=== PATIENT | male | born 1940 | race Caucasian/White ===

== ENCOUNTER 2017-02-07 18:32 | Emergency (ER) | payer OTHER, MEDICARE ==
[~2017-02-07] VITALS: Ht 172.7 cm; Wt 95.3 kg
[~2017-02-07 18:32] MED LIST: ALLOPURINOL100 M1 PO; AMIODARONE HCL200 M1 PO; AMLODIPINE BES2.5 M1 PO; AMLODIPINE BES2.5 MG PO; AMLODIPINE BESY10 M1 PO; ASPIRIN81 M4 PO; ATORVASTATIN CA20 M1 PO; BISAC-EVAC10 M1 PR; BISACODYL10 M1 RC; CLARITIN10 M1 PO; DAILY VALUE1 EACH PO; DESITIN56 GM TOP; FLOMAX0.4 M1 PO; FLUTICASON0.05 MG/Ac NASB; FLUTICASONE PRO16 GM NAS; FUROSEMIDE20 M1 PO; GLYCERIN1 SUP PR; HYDROCHLOROTH12.5 M3 PO; HYDROCHLOROTHIA25 M1 PO; HYDRODIURIL 2525 MG PO; INVANZ1 G1 IV; K-DUR 20MEQ TA20 MEQ PO; KLOR-CON25 MEQ PO; LASIX40 M1 PO; LISINOPRIL20 M1 PO; LOSARTAN POTAS100 M1 PO; LOSARTAN POTAS100 MG PO; LUTEIN10 MG PO; LUTEIN6 M1 PO; MIRALAX17 G1 PO; MIRALAX17 GM PO; MULTI VITAMINS1 TAB PO; MULTI-DAY VITA1 EACH PO; NEPHRO-VITE TA0.8 MG PO; OMEPRAZOLE40 M1 PO; PERIDEX473 ML PO; POTASSIUM CHLO20 ME2 PO; SELENIUM200 MC4 PO; SENOKOT-S TABL1 EACH PO; SIMVASTATIN10 M1 PO; TAMSULOSIN HCL0.4 M1 PO; TAMSULOSIN HYD0.4 MG PO; TOPROL XL25 M1 PO; VITAMIN C500 M3 PO; VITAMIN C500 M8 PO; VITAMIN D31000 IU PO; VITAMIN D31000 UNI1 PO; ZOCOR 10MG TAB10 MG PO; ZOCOR20 M1 PO; [UNRECOGNIZED DRUG - OTHER] PO
--- NOTE | 2017-02-07 21:05 | ED MVC/FALL/TRAUMA COMPLAINT ---
History of Present Illness General Chief Complaint: General Adult Stated Complaint: FALL Source: patient, old records Exam Limitations: no limitations Vital Signs & Intake/Output Vital Signs & Intake/Output Vital Signs Date Time Temp Pulse Resp B/P B/P Pulse O2 O2 Flow FiO2 Mean Ox Delivery Rate 02/07 2220 97.7 62 150/82 02/07 1854 98.3 63 18 171/83 95 Room Air Allergies Coded Allergies: Penicillins (RASH 05/15/16) tetracycline (RASH 05/15/16) Reconcile Medications Allopurinol 100 MG TABLET 2 TAB PO DAILY KIDNEY HEALTH Amiodarone HCl 200 MG TABLET 1 TAB PO DAILY HEART HEALTH Ascorbic Acid (Vitamin C) 500 MG TABLET 1 TAB PO DAILY SUPPLEMENT (Reported) Aspirin (Aspirin*) 81 MG TAB.CHEW 1 TAB PO DAILY heart health Atorvastatin Calcium 20 MG TABLET 1 TAB PO 5PM HIGH CHOLESTROL Bisacodyl 10 MG SUPP.RECT 1 SUP RC Sunday PRN CONSTIPATION Chlorhexidine Gluconate (Peridex) (Unknown Strength) MOUTHWASH (Unknown Dose) PO BID GINGIVITIS (Reported) Cholecalciferol (Vitamin D3) (Vitamin D3) 1,000 UNIT CAPSULE 2 CAP PO QPM SUPPLEMENT (Reported) Fluticasone Propionate 16 GM SPRAY.SUSP 2 SPRAY KATHIE DAILY SINUS CONGESTION ( Reported) Furosemide (Lasix) 40 MG TABLET 1 TAB PO BID heart Lisinopril 20 MG TABLET 1 TAB PO DAILY heart health Loratadine (Claritin) 10 MG TABLET 1 TAB PO QPM ALLERGIES (Reported) Metoprolol Succ XL (Toprol XL) 25 MG TAB 1 TAB PO DAILY heart health Multivitamin (Multi-Day Vitamins) 1 EACH TABLET 1 TAB PO DAILY SUPPLEMENTS Omeprazole 40 MG CAPSULE.DR 1 CAP PO DAILY STOMACH HEALTH Polyethylene Glycol 3350 (Miralax) 17 GRAM POWD.PACK 1 PAC PO DAILY CONSTIPATION dissolve in water Sennosides/Docusate Sodium (Senokot-S Tablet) 8.6 MG-50 MG TABLET 1 TAB PO BID CONSTIPATION Tamsulosin HCl 0.4 MG CAP.ER.24H 0.4 MG PO BID PROSTATE (Reported) Zinc Oxide (Desitin) 13 % CREAM..G. 1 LUZMA TOP BID GROIN (Reported) Triage Note: PT TO TRIAGE WITH C/O DENTAL BLEEDING S/P TEETH EXTRUCTION AT 10AM TODAY. VSS. Triage Nurses Notes Reviewed? yes Onset: Abrupt Duration: hour(s): (few) Timing: multiple episodes today Severity: mild, moderate Injuries/Fall Location: gum surgery No Modifying Factors: none HPI: This is a 76-year-old male with history of CLL who presents for chief complaint of gum bleeding status post tooth extractions done today. He states he had broken the Bridge and they did an extraction of his teeth. He states they got clearance from Dr. TAMAYO regarding his platelet count. (Drs. afternoon he started having significant bleeding but appears to have tapered off. He doesn't feel lightheaded or dizzy. Denies any chest pain or shortness of breath. Denies any dizziness. Upon coming to the hospital he tripped over the curb and landed on his left thigh but states that NOTHING hurts and didn't hit his head. is very concerned that he is having bleeding and wants to know what his platelet count is. I'm sure with last platelet count was that is usually done and sent to [place]. His last blood transfusion was one month ago. According to the he is doing very well on his new chemotherapeutic drug for CLL. Past History Travel History Traveled to [place] past 21 day No Medical History Any Pertinent Medical History? 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 Musculoskeletal: NONE Psychiatric: NONE Endocrine: NONE Blood Disorders: anemia, PE (remote history), CLL with anemia, leukocytosis & thrombocytopenia Cancer(s): CLL History of MRSA: No History of VRE: No History of CDIFF: No Pneumonia Vaccine: 09/10/16 Influenza Vaccine: 08/09/16 Surgical History Surgical History: appendectomy, cholecystectomy, cataract removal, nasal polyps removed Psychosocial History Who do you live with Spouse Services at Home None What is your primary language Yoruba Tobacco Use: Quit >30 days ago Family History Family History, If Any: FATHER (PNA). , Age 70; Cause: Pancreatic cancer. MOTHER, , Age 98; Cause: CHF (congestive heart failure). BROTHER, , Age 70; Cause: Brain tumor. Hx Contributory? No Review of Systems Review of Systems Constitutional: Denies: chills, fever. Eyes: Denies: blindness, blurred vision. Ears, Nose, Throat, Mouth: Reports: no symptoms. Respiratory: Denies: cough, short of breath, sputum production. Cardiovascular: Denies: chest pain, palpitations. Gastrointestinal/Abdominal: Denies: abdominal pain. Genitourinary: Reports: no symptoms. Musculoskeletal: Reports: no symptoms. Skin: Denies: see HPI. Neurological/Psychological: Denies: anxiety. All Other Systems: Reviewed and Negative Physical Exam Physical Exam General Appearance: well developed/nourished, alert, awake Head: atraumatic, normal appearance Eyes: Bilateral: normal appearance, PERRL, EOMI. Ears, Nose, Throat, Mouth: hearing grossly normal, moist mucous membrane, minimal oozing from upper gum PATIENT BITING DOWN ON GAUZE Neck: normal inspection, supple, full range of motion Respiratory: normal breath sounds, chest non-tender, no respiratory distress Cardiovascular: regular rate/rhythm Peripheral Pulses: 2+ radial (R), 2+ radial (L) Extremities: normal range of motion Neurologic/Psych: no motor/sensory deficits, awake, alert, oriented x 3 Skin: intact, normal color, warm/dry Core Measures ACS in differential dx? No Severe Sepsis Present: No Septic Shock Present: No Progress Differential Diagnosis: POST OPERATIVE GINGIVAL BLEEDING Plan of Care: Orders Procedure Date/time Status COMPREHENSIVE METABOLIC PANEL 02/07 2114 Complete CBC WITHOUT DIFFERENTIAL 02/07 2114 Complete Laboratory Tests 02/07/172117: Anion Gap 10, Estimated GFR 59 L, BUN/Creatinine Ratio 16.7, Glucose 90, Calcium 9.3, Total Bilirubin 1.1, AST 24, ALT 37, Alkaline Phosphatase 110, Total Protein 6.0 L, Albumin 4.0, Globulin 2.0, Albumin/Globulin Ratio 2.0, CBC w Diff NO MAN DIFF REQ, RBC 4.72, MCV 79.6 L, MCH 25.8 L, RDW 15.7 H, MPV 7.9 , Gran % 40.6 L, Lymphocytes % 56.0 H, Monocytes % 2.9, Eosinophils % 0.3, Basophils % 0.2, Absolute Granulocytes 2.9, Absolute Lymphocytes 4.0 H, Absolute Monocytes 0.2, Absolute Eosinophils 0, Absolute Basophils 0, PUBS MCHC 32.4 L PLATELET COUNT 93 MINIMAL OOZING FROM GUM D/W SECTION FOREST FIRE WARDEN FOR DR TAMAYO - WILL LET HIM KNOW PATIETN'S RESULTS IN AM (JOEY BETTS,JESSICA) Departure Departure Time of Disposition: 2224 Disposition: HOME OR SELF CARE Condition: Stable Clinical Impression Primary Impression: Gingival bleeding Referrals: CALIN BETTS,ANJANA Nash (PCP/Family) RONI BETTS,YAJAIRA Mauricio Additional Instructions: Follow-up with your oral surgeon and with your oncologist in the office. Return for any worsening bleeding. Departure Forms: Customer Survey General Discharge Information
[2017-02-07 21:26] LABS: ABSOLUTE BASOPHIL COUNT 0 /CUMM (0.0-0.2); ABSOLUTE EOSINOPHIL COUNT 0 /CUMM (0.0-0.7); ABSOLUTE GRANULOCYTE CT 2.9 /CUMM (1.4-6.5); ABSOLUTE MONOCYTE COUNT 0.2 /CUMM (0.10-0.60); BASOPHIL % 0.2 % (0.0-2.0); EOSINOPHIL % 0.3 % (0-5); HEMATOCRIT 37.5 % (42-52); MEAN CORPUSCULAR HGB 25.8 PG (27.0-31.0); MEAN CORPUSCULAR HGB CONC 32.4 G/DL (33.0-37.0); MEAN CORPUSCULAR VOLUME 79.6 FL (80.0-94.0); MEAN PLATELET VOLUME 7.9 FL (7.4-10.4); PLATELET COUNT 93 /CUMM (130-400); RBC DISTRIBUTION WIDTH 15.7 % (11.5-14.5); RED BLOOD CELL CT 4.72 /CUMM (4.70-6.10); WHITE BLOOD CELL COUNT 7.2 /CUMM (4.8-10.8)
[2017-02-07 21:28] LABS: GRANULOCYTE % 40.6 % (42.2-75.2)
[2017-02-07 22:20] VITALS: BP 150/82
== END 2017-02-07 22:30 ==
LOC: ERH 18:32
PROVIDERS: Emergency Medicine
DX: K06.8 Other specified disorders of gingiva and edentulous alveolar ridge (principal)

== ENCOUNTER 2018-01-19 08:25 | Emergency (ER) | payer OTHER, MEDICARE ==
[~2018-01-19] VITALS: Ht 172.7 cm; Wt 97.5 kg
--- NOTE | 2018-01-19 09:00 | ED GENERAL ADULT ---
History of Present Illness General Chief Complaint: General Adult Stated Complaint: PER PT FEVER LAST PM Source: patient, family, old records Exam Limitations: no limitations Allergies Coded Allergies: Penicillins (RASH 05/15/16) tetracycline (RASH 05/15/16) Reconcile Medications Allopurinol 100 MG TABLET 2 TAB PO DAILY KIDNEY HEALTH Amiodarone (Cordarone) 200 MG TABLET 1 TAB PO DAILY HEART HEALTH Ascorbic Acid (Vitamin C) 500 MG TABLET 1 TAB PO DAILY SUPPLEMENT (Reported) Aspirin (Aspirin*) 81 MG TAB.CHEW 1 TAB PO DAILY heart health Atorvastatin Calcium 20 MG TABLET 1 TAB PO 5PM HIGH CHOLESTROL Bisacodyl 10 MG SUPP.RECT 1 SUP RC Sunday PRN CONSTIPATION Chlorhexidine Gluconate (Peridex) (Unknown Strength) MOUTHWASH (Unknown Dose) PO BID GINGIVITIS (Reported) Cholecalciferol (Vitamin D3) (Vitamin D3) 1,000 UNIT CAPSULE 2 CAP PO QPM SUPPLEMENT (Reported) Fluticasone Propionate 16 GM SPRAY.SUSP 2 SPRAY KATHIE DAILY SINUS CONGESTION ( Reported) Furosemide (Lasix) 40 MG TABLET 1 TAB PO BID heart Lisinopril 20 MG TABLET 1 TAB PO DAILY heart health Loratadine (Claritin) 10 MG TABLET 1 TAB PO QPM ALLERGIES (Reported) Metoprolol Succ XL (Toprol XL) 25 MG TAB 1 TAB PO DAILY heart health Multivitamin (Multi-Day Vitamins) 1 EACH TABLET 1 TAB PO DAILY SUPPLEMENTS Omeprazole 40 MG CAPSULE.DR 1 CAP PO DAILY STOMACH HEALTH Polyethylene Glycol 3350 (Miralax) 17 GRAM POWD.PACK 1 PAC PO DAILY CONSTIPATION dissolve in water Sennosides/Docusate Sodium (Senokot-S Tablet) 8.6 MG-50 MG TABLET 1 TAB PO BID CONSTIPATION Tamsulosin HCl 0.4 MG CAP.ER.24H 0.4 MG PO BID PROSTATE (Reported) Zinc Oxide (Desitin) 13 % CREAM..G. 1 LUZMA TOP BID GROIN (Reported) Triage Note: PT PRESENTS TO THER ER C/O CHILLS AND FEVER, PT STATES THAT HE HAS A BAD SINUS INFECTION AND THAT IT IS GETTING WORSE.. PT STATES HE HAS CLL. Triage Nurses Notes Reviewed? yes HPI: Patient has CLL. Patient was on chemotherapy however his blood count decreased to thousand so the medication was held. Last night patient began to run a fever of 100.6. He spoke to his doctor this morning who told him to come to the emergency department for evaluation. Patient states that he has chronic sinusitis and has a pressure sensation in his right frontal sinus. He blows his nose often with a very thick yellowish discharge. He does have a productive cough but states that it he feels postnasal drip and then he coughs and then he brings up thick yellow sputum. Patient states that this is been an ongoing issue and he has no appointment to see an ear nose and throat doctor again next week. (Urban BETTS,Marty Vasquez) Vital Signs & Intake/Output Vital Signs & Intake/Output Vital Signs Date Time Temp Pulse Resp B/P B/P Pulse O2 O2 Flow FiO2 Mean Ox Delivery Rate 01/19 1013 99.0 74 18 119/64 92 Room Air 01/19 0923 97 Room Air Room Air 01/19 0832 99.2 83 18 138/75 92 Room Air (Fausto BETTS,Katy) Past History Travel History Traveled to [place] past 21 day No Medical History Any Pertinent Medical History? 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 Musculoskeletal: NONE Psychiatric: NONE Endocrine: NONE Blood Disorders: anemia, PE (remote history), CLL with anemia, leukocytosis & thrombocytopenia Cancer(s): CLL History of MRSA: No History of VRE: No History of CDIFF: No Surgical History Surgical History: appendectomy, cholecystectomy, cataract removal, nasal polyps removed Psychosocial History Who do you live with Spouse Services at Home None What is your primary language Micronesian Tobacco Use: Quit >30 days ago ETOH Use: denies use Illicit Drug Use: denies illicit drug use Family History Family History, If Any: FATHER (PNA). , Age 70; Cause: Pancreatic cancer. MOTHER, , Age 98; Cause: CHF (congestive heart failure). BROTHER, , Age 70; Cause: Brain tumor. Hx Contributory? No (Urban BETTS,Marty Vasquez) Review of Systems Review of Systems Constitutional: Reports: see HPI, chills, fever. EENTM: Reports: see HPI, nasal congestion. Respiratory: Reports: no symptoms. Cardiovascular: Reports: no symptoms. GI: Reports: no symptoms. Genitourinary: Reports: no symptoms. Musculoskeletal: Reports: no symptoms. Skin: Reports: no symptoms. Neurological/Psychological: Reports: no symptoms. Hematologic/Endocrine: Reports: no symptoms. Immunologic/Allergic: Reports: no symptoms. All Other Systems: Reviewed and Negative (Urban BETTS,Marty Vasquez) Physical Exam Physical Exam General Appearance: well developed/nourished, alert, awake, mild distress Head: atraumatic, normal appearance Eyes: Bilateral: PERRL, EOMI, other (RIGHT EYELID DROOP). Ears, Nose, Throat: normal pharynx, hearing grossly normal, nasal congestion Neck: normal inspection, supple, full range of motion Respiratory: normal breath sounds, chest non-tender, no respiratory distress, lungs clear Cardiovascular: regular rate/rhythm, normal peripheral pulses Gastrointestinal: normal bowel sounds, soft, non-tender, no organomegaly Back: normal inspection, normal range of motion Extremities: normal inspection, normal capillary refill, normal range of motion, no edema Neurologic/Psych: no motor/sensory deficits, awake, alert, oriented x 3, normal gait, normal mood/affect Skin: intact, normal color, warm/dry Lymphatic: no anterior cervical radha Core Measures ACS in differential dx? No CVA/TIA Diagnosis: No Sepsis Present: No Sepsis Focused Exam Completed? No (Urabn BETTS,Marty Vasquez) Progress Differential Diagnoses I considered the following diagnoses in my evaluation of the patient: [Sepsis, sinusitis, pneumonia, UTI, electrolyte abnormality, neutropenic fever] Diagnostic Imaging: Viewed by Me: Radiology Read. Discussed w/RAD: Radiology Read. CXR Impression: PATIENT: YOSEF GÓMEZ PRESENT AGE: 77 PATIENT ACCOUNT NO: [id number] : 38 LOCATION: [facility] ORDERING PHYSICIAN: Marty Duggan MD SERVICE DATE: 01/19/18 EXAM TYPE: RAD - XRY-PORTABLE CHEST XRAY EXAMINATION: XR PORTABLE CHEST CLINICAL INFORMATION: Fever COMPARISON: None TECHNIQUE: Portable portable AP 85 degrees upright view of the chest was obtained. FINDINGS: The cardiac silhouette is enlarged. The lung volumes are decreased with crowding of the lung markings at the bases. No dominant consolidation or pleural effusion. IMPRESSION: Enlarged cardiac silhouette. No dominant consolidation or pleural effusion is seen. DICTATED BY: Johan Dunham MD DATE/TIME DICTATED:01/19/18935 STEEL WOOL MACHINE OPERATOR:REYNA DATE/TIME TRANSCRIBED:01/19/18935 CONFIDENTIAL, DO NOT COPY WITHOUT APPROPRIATE AUTHORIZATION. <Electronically signed in Other Vendor System> SIGNED BY: Johan Dunham MD 01/19/18 0941 Initial ED EKG: none (Urban BETTS,Marty Vasquez) Plan of Care: Orders Procedure Date/time Status LACTIC ACID 01/19 1159 Active Add-on Test (ER Only) 01/19 1148 Active CULTURE,URINE 01/19 1122 Active RAPID VIRAL INFLUENZA A 01/19 1018 Complete BLOOD CULTURE 01/19 0859 Active URINALYSIS 01/19 0859 Complete LACTIC ACID 01/19 0859 Complete COMPREHENSIVE METABOLIC PANEL 01/19 0859 Complete CBC WITHOUT DIFFERENTIAL 01/19 0859 Complete Laboratory Tests 01/19/18 1122: Urine Color SY, Urine Clarity CLEAR, Urine pH 6.0, Ur Specific [place] 1.010, Urine Protein 30 H, Urine Ketones NEG, Urine Nitrite NEG, Urine Bilirubin NEG, Urine Urobilinogen 0.2, Ur Leukocyte Esterase NEG, Ur Microscopic SEDIMENT EXAMINED, Urine RBC 25-50 H, Urine WBC RARE, Ur Epithelial Cells MOD H, Urine Bacteria RARE H, Urine Hemoglobin SMALL H, Urine Glucose NEG 01/19/18 0900: Anion Gap 10, Estimated GFR 58 L, BUN/Creatinine Ratio 14.2, Glucose 113 H, Lactic Acid 0.9, Calcium 9.1, Total Bilirubin 1.5 H, AST 18, ALT 30, Alkaline Phosphatase 84, Total Protein 5.8 L, Albumin 3.6, Globulin 2.2, Albumin/ Globulin Ratio 1.6, CBC w Diff MAN DIFF ORDERED, RBC 5.59, MCV 76.2 L, MCH 24.7 L, MCHC 32.4 L, RDW 15.7 H, MPV 9.6, Gran % 16.2 L, Lymphocytes % 47.6, Monocytes % 35.2 H, Eosinophils % 0.2, Basophils % 0.8, Absolute Granulocytes 0.4 L, Absolute Lymphocytes 1.2, Absolute Monocytes 0.9 H, Absolute Eosinophils 0, Absolute Basophils 0, Platelet Estimate DECREASED, Anisocytosis 1 + Microbiology 01/19 1122 URINE ROUT: Urine Culture - RECD 01/19 1025 NASOPHARYN: Influenza Virus A & B Rapid Smear - COMP 01/19 0918 BLOOD: Blood Culture - RECD 01/19 0900 BLOOD: Blood Culture - RECD 11:44 AM PATIENT SIGNED OUT TO ME BY DR DUGGAN, PENDING UA. UA SHOWS RBC'S, NO ACTIVE INFECTION. URINE CULTURE ADDED ON. WILL FOLLOW UP WITH DR TAMAYO IN THE OFFICE. (Katy Lambert MD) Departure Departure Disposition: HOME OR SELF CARE Condition: Stable Referrals: Berna BETTS,Vahe Nash (PCP/Family) Andrea BETTS,Aramis Mauricio Additional Instructions: FOLLOW UP WITH TAKE MOTRIN OR TYLENOL NEEDED FOR FEVER RETURN IF SYMPTOMS WORSEN OR FOR ANY CONCERNS Departure Forms: Customer Survey General Discharge Information (Urban BETTS,Marty Vasquez) Departure Time of Disposition: 1148 Clinical Impression Primary Impression: Fever Secondary Impressions: Hematuria PA/ATG JAVA DEVELOPER Co-Sign Statement Statement: ED Attending supervision documentation- [X] I saw and evaluated the patient. I have also reviewed all the pertinent lab results and diagnostic results. I agree with the findings and the plan of care as documented in the PA's/ATG JAVA DEVELOPER's documentation. [X] I have reviewed the ED Record and agree with the PA's/ATG JAVA DEVELOPER's documentation. [] Additions or exceptions (if any) to the PAs/ATG JAVA DEVELOPER's note and plan are summarized below: [] (Fausto BETTS,Katy) Critical Care Note Critical Care Note Critical Care Time: non-applicable (Urban BETTS,Marty Vasquez)
[2018-01-19 09:30] LABS: ABSOLUTE BASOPHIL COUNT 0 /CUMM (0.0-0.2); ABSOLUTE EOSINOPHIL COUNT 0 /CUMM (0.0-0.7); ABSOLUTE GRANULOCYTE CT 0.4 /CUMM (1.4-6.5); ABSOLUTE LYMPH COUNT 1.2 /CUMM (1.2-3.4); ABSOLUTE MONOCYTE COUNT 0.9 /CUMM (0.10-0.60); BASOPHIL % 0.8 % (0.0-2.0); EOSINOPHIL % 0.2 % (0-5); GRANULOCYTE % 16.2 % (42.2-75.2); HEMATOCRIT 42.6 % (42-52); MEAN CORPUSCULAR HGB 24.7 PG (27.0-31.0); MEAN CORPUSCULAR HGB CONC 32.4 G/DL (33.0-37.0); MEAN CORPUSCULAR VOLUME 76.2 FL (80.0-94.0); MEAN PLATELET VOLUME 9.6 FL (7.4-10.4); PLATELET COUNT 111 /CUMM (130-400); RBC DISTRIBUTION WIDTH 15.7 % (11.5-14.5); RED BLOOD CELL CT 5.59 /CUMM (4.70-6.10); WHITE BLOOD CELL COUNT 2.5 /CUMM (4.8-10.8)
--- NOTE | 2018-01-19 09:41 | RADIOLOGY REPORT ---
EXAMINATION: XR PORTABLE CHEST CLINICAL INFORMATION: Fever COMPARISON: None TECHNIQUE: Portable portable AP 85 degrees upright view of the chest was obtained. FINDINGS: The cardiac silhouette is enlarged. The lung volumes are decreased with crowding of the lung markings at the bases. No dominant consolidation or pleural effusion. IMPRESSION: Enlarged cardiac silhouette. No dominant consolidation or pleural effusion is seen.
[2018-01-19 10:13] VITALS: BP 119/64
== END 2018-01-19 11:54 ==
LOC: ERH 08:25
PROVIDERS: Emergency Medicine
DX: R31.9 Hematuria, unspecified (principal); R50.9 Fever, unspecified
CPT/HCPCS: 71045; 81001; 87040; 87086; 87804; 87804-59